=== PATIENT | male | born 1995 | race Two or more races ===

== ENCOUNTER 2018-01-25 20:33 | Emergency (ER) | payer OTHER ==
[2018-01-25] MEDS: ONDANSETRON 4MG/2ML VIAL (J2405) IV (21:28)
[2018-01-25] MEDS: NS 1,000 ML IV (21:28)
[2018-01-25] MEDS: MORPHINE 2 MG/ML 1ML SYRINGE (J2270) IV (21:28)
[2018-01-25 21:32] LABS: BASO % 0.4 % (0.0-1.0); EOS # 0.2 10^3/uL (0.0-0.50); EOS % 2.5 % (0.0-3.0); HEMATOCRIT 42.3 % (42.0-52.0); HEMOGLOBIN 14.1 g/dl (13.5-17.5); IMMATURE GRANULOCYTE % 0.1 % (0-3.0); LYMPH # 2.8 10^3/uL (1.5-6.5); LYMPH % 35.8 % (24.0-44.0); MEAN CORPUSCULAR HEMOGLOBIN 27.2 pg (27.0-33.0); MEAN CORPUSCULAR HGB CONC 33.3 g/dl (32.0-36.5); MEAN CORPUSCULAR VOLUME 81.7 fl (80.0-96.0); MONO # 0.7 10^3/uL (0.0-0.8); MONO % 8.4 % (0.0-5.0); NEUTROPHILS # 4.1 10^3/uL (1.8-7.7); NEUTROPHILS % 52.8 % (36.0-66.0); PLATELET COUNT, AUTOMATED 230 10^3/uL (150-450); RED BLOOD COUNT 5.18 10^6/uL (4.30-6.10); WHITE BLOOD COUNT 7.7 10^3/uL (4.0-10.0)
[2018-01-25 21:43] LABS: INR 1.02; PROTHROMBIN TIME 13.5 SECONDS (12.1-14.4)
[2018-01-25 21:47] LABS: KETONE, URINE AUTO RFX NEGATIVE (NEGATIVE); LEUKOCYTE ESTERASE UR AUTO RFX NEGATIVE (NEGATIVE); MUCUS, URINE RFX SMALL (NEGATIVE); NITRITE, URINE AUTO RFX NEGATIVE (NEGATIVE); RBC, URINE AUTO RFX 0 /HPF (0-3); SPECIFIC GRAVITY UR AUTO RFX 1.006 (1.002-1.035); SQUAM EPITHELIAL CELL UR AURFX 0 /HPF (0-6); WBC, URINE AUTO RFX 0 /HPF (0-3)
[2018-01-25 22:24] LABS: ALBUMIN 3.6 GM/DL (3.2-5.2); ALBUMIN/GLOBULIN RATIO 1.09 (1.00-1.93); ALKALINE PHOSPHATASE 94 U/L (45-117); ALT/SGPT 34 U/L (12-78); ANION GAP 7 MEQ/L (8-16); AST/SGOT 50 U/L (7-37); BILIRUBIN,DIRECT < 0.1 MG/DL (0.0-0.2); BILIRUBIN,TOTAL 0.2 MG/DL (0.2-1.0); BLOOD UREA NITROGEN 13 MG/DL (7-18); CALCIUM LEVEL 8.5 MG/DL (8.5-10.1); CARBON DIOXIDE LEVEL 27 MEQ/L (21-32); CHLORIDE LEVEL 107 MEQ/L (98-107); CREATININE FOR GFR 0.98 MG/DL (0.70-1.30); GLUCOSE, FASTING 88 MG/DL (70-100); LIPASE 80 U/L (73-393); POTASSIUM SERUM 3.8 MEQ/L (3.5-5.1); SODIUM LEVEL 141 MEQ/L (136-145); TOTAL PROTEIN 6.9 GM/DL (6.4-8.2)
[2018-01-25] MEDS: KETOROLAC 30 MG/ML VIAL (J1885) IV (22:58)
== END 2018-01-25 23:09 | disposition home or self-care (01) ==
LOC: M ED 20:33
DX: R10.31 Right lower quadrant pain (principal); R11.0 Nausea; F17.210 Nicotine dependence, cigarettes, uncomplicated
CPT/HCPCS: J2405

== ENCOUNTER 2018-05-26 01:45 | Emergency (ER) | payer OTHER ==
[~2018-05-26] VITALS: Ht 185.4 cm; Wt 100.0 kg
[~2018-05-26 01:45] MED LIST: ZOFR4TAB14 PO
[2018-05-26] MEDS ORDERED: HALOPERIDOL 5 MG/ML VIAL (J1630) As Ordered ONE (03:06)
[2018-05-26] MEDS ORDERED: diphenhydrAMINE INJ 50MG/ML VIAL (J1200) As Ordered ONE (03:06)
[2018-05-26] MEDS ORDERED: LORazepam 2 MG/ML VIAL (J2060) As Ordered ONE (03:07)
[2018-05-26] MEDS ORDERED: HALOPERIDOL 5 MG/ML VIAL (J1630) IM ONE (03:15)
[2018-05-26] MEDS ORDERED: diphenhydrAMINE INJ 50MG/ML VIAL (J1200) IM ONE (03:15)
[2018-05-26] MEDS ORDERED: LORazepam 2 MG/ML VIAL (J2060) IM ONE (03:15)
[2018-05-26] MEDS ORDERED: NS 1,000 ML IV ONE (03:15)
[2018-05-26 03:46] LABS: BASO % 0.5 % (0.0-1.0); EOS # 0.1 10^3/uL (0.0-0.50); EOS % 0.8 % (0.0-3.0); HEMATOCRIT 43.3 % (42.0-52.0); HEMOGLOBIN 14.9 g/dl (13.5-17.5); LYMPH # 1.8 10^3/uL (1.5-6.5); LYMPH % 26.6 % (24.0-44.0); MEAN CORPUSCULAR HEMOGLOBIN 28.2 pg (27.0-33.0); MEAN CORPUSCULAR HGB CONC 34.4 g/dl (32.0-36.5); MONO # 0.6 10^3/uL (0.0-0.8); NEUTROPHILS # 4.1 10^3/uL (1.8-7.7); NEUTROPHILS % 62.6 % (36.0-66.0); PLATELET COUNT, AUTOMATED 209 10^3/uL (150-450); RED BLOOD COUNT 5.28 10^6/uL (4.30-6.10); WHITE BLOOD COUNT 6.6 10^3/uL (4.0-10.0)
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
[2018-05-26 04:40] LABS: ACETAMINOPHEN LEVEL < 2.0 UG/ML (10.0-30.0); ALBUMIN 4.1 GM/DL (3.2-5.2); ALT/SGPT 46 U/L (12-78); BILIRUBIN,DIRECT 0.1 MG/DL (0.0-0.2); BILIRUBIN,TOTAL 0.3 MG/DL (0.2-1.0); BLOOD UREA NITROGEN 11 MG/DL (7-18); CALCIUM LEVEL 7.7 MG/DL (8.5-10.1); CARBON DIOXIDE LEVEL 22 MEQ/L (21-32); CHLORIDE LEVEL 110 MEQ/L (98-107); CPK CREATINE PHOSPHOKINASE 412 U/L (39-308); CREATININE FOR GFR 1.01 MG/DL (0.70-1.30); ETHYL ALCOHOL (ETHANOL) 0.249 % (0.000-0.010); GLOMERULAR FILTRATION RATE > 60.0 (>60); GLUCOSE, FASTING 102 MG/DL (70-100); MB/CK RELATIVE INDEX 0.68 (< OR =4); POTASSIUM SERUM 3.6 MEQ/L (3.5-5.1); SALICYLATE LEVEL < 1.7 MG/DL (5.0-30.0); SODIUM LEVEL 143 MEQ/L (136-145); TOTAL PROTEIN 7.9 GM/DL (6.4-8.2); TROPONIN I < 0.02 NG/ML (< 0.10)
[2018-05-26 04:44] LABS: AMPHETAMINES LEVEL URINE NEGATIVE (NEGATIVE); BARBITURATES URINE NEGATIVE (NEGATIVE); BENZODIAZEPINES URINE NEGATIVE (NEGATIVE); CANNABINOIDS URINE NEGATIVE (NEGATIVE); COCAINE METABOLITE URINE NEGATIVE (NEGATIVE); METHADONE URINE NEGATIVE (NEGATIVE); OPIATES URINE NEGATIVE (NEGATIVE); PHENCYCLIDINE URINE NEGATIVE (NEGATIVE)
--- NOTE | 2018-05-26 09:18 | REP ---
Portable chest, single AP view semi upright: There are no comparisons. Lung brunson are clear. Cardiac size is normal for positioning. The katelyn, mediastinum, skeletal structures are unremarkable. Impression: Negative portable chest. Electronically Signed by Garret Yepez MD 05/26/2018 09:09 A
[2018-05-26] MEDS ORDERED: LIDOCAINE 1% MDV 20ML VIAL As Ordered ONE (12:03)
[2018-05-26] MEDS ORDERED: LIDOCAINE 1% MDV 20ML VIAL SC ONE (12:15)
[2018-05-26 12:30] VITALS: BP 119/57
[2018-05-26] MEDS ORDERED: KEFL500C17 PO (13:13)
--- NOTE | 2018-05-26 21:03 | ECGEPIP ---
Stationary ECG Study [facility] - ED Test Date: 2018-05-26 Pat Name: PAIGE GILMAN Department: Room: - Gender: M Research Associate Policy: gt : 1995 Requested By: CARSON Varghese Order Number: [id number] Reading MD: Nae Jain Measurements Intervals [place] Rate: 89 P: 56 MT: 163 QRS: 56 QRSD: 106 T: 44 QT: 361 QTc: 441 Interpretive Statements SINUS RHYTHM NO PRIOR FOR COMPARISON Electronically Signed On 05-26-2018 21:03:15 EDT by Nae Jain
== END 2018-05-26 13:31 | disposition home or self-care (01) ==
LOC: M ED 01:45
DX: S01.81XA Laceration without foreign body of other part of head, initial encounter (principal); S01.511A Laceration without foreign body of lip, initial encounter; F10.120 Alcohol abuse with intoxication, uncomplicated; X58.XXXA Exposure to other specified factors, initial encounter; Y92.133 Barracks on military base as the place of occurrence of the external cause
CPT/HCPCS: 36415; 51701; 70450; 71045; 72125; 80048; 80076; 80307; 82550; 82553; 84443; 84484; 85025; 93005; 93041; 94760; 96360; 96372; 99285; G0480; J1200; J1630; J2060

== ENCOUNTER 2018-07-19 10:51 | Emergency (ER) | payer OTHER ==
[~2018-07-19] VITALS: Ht 182.9 cm; Wt 91.5 kg
[2018-07-19 10:51] VITALS: BP 128/82
[~2018-07-19 10:51] MED LIST changes: +KEFL500C17 PO
== END 2018-07-19 11:24 | disposition left against medical advice (07) ==
LOC: M ED 10:51
DX: H57.12 Ocular pain, left eye (principal); Z53.21 Procedure and treatment not carried out due to patient leaving prior to being seen by health care provider

== ENCOUNTER 2018-07-23 10:32 | Emergency (ER) | payer OTHER ==
[~2018-07-23] VITALS: Ht 182.9 cm; Wt 91.4 kg
[2018-07-23 10:33] VITALS: BP 139/75
[2018-07-23] MEDS ORDERED: ERYT1OIN26 OS (11:30)
== END 2018-07-23 11:40 | disposition home or self-care (01) ==
LOC: M ED 10:32
DX: H00.014 Hordeolum externum left upper eyelid (principal); Z72.0 Tobacco use